=== PATIENT | female | born 1990 | race Caucasian/White ===

== ENCOUNTER 2016-07-17 20:33 | Emergency (ER) | payer OTHER ==
[2016-07-17 21:09] LABS: BILIRUBIN NEGATIVE (NEGATIVE); BLOOD NEGATIVE Ery/uL (NEGATIVE); CLARITY SLIGHTLY HAZY (CLEAR); COLOR YELLOW (YELLOW); GLUCOSE (U) NORMAL (NORMAL); KETONE (U) NEGATIVE (NEGATIVE); LEUKOCYTES NEGATIVE Leu/uL (NEGATIVE); NITRITE NEGATIVE (NEGATIVE); PROTEIN NEGATIVE (NEGATIVE); UROBILINOGEN 0.2 mg/dL (0.2-1.0); pH 5.5 (5.0-9.0)
[2016-07-17 21:32] LABS: BASOPHIL 0.7 % (0-2); EOSINOPHIL 5.9 % (0-5); HCT 40.1 % (37.0-47.0); HGB 13.4 g/dl (12.5-16.0); LYMPHOCYTE 30.5 % (15-48); MCH 31.5 pg (25.0-31.0); MCHC 33.4 g/dL (32.0-36.0); MCV 94.4 fL (78.0-100.0); MONOCYTE 7.4 % (0-12); MPV 9.9 fL (6.0-9.5); NEUTROPHIL 55.5 % (41-80); PLT 264 K/uL (150-400); RBC 4.25 M/uL (4.20-5.40); RDW 13.6 % (11.5-14.0); WBC 9.1 K/uL (4.0-10.5)
[2016-07-17 21:53] LABS: ALBUMIN 4.4 g/dL (3.5-5.0); BILIRUBIN - TOTAL 0.6 mg/dL (0.1-1.0); CREATININE 0.8 mg/dL (0.5-1.0); GLOBULIN (CALCULATION) 2.3 g/dL (2.2-4.2); POTASSIUM 3.7 mmol/L (3.5-5.1); TOTAL PROTEIN 6.7 g/dL (6.4-8.3)
== END 2016-07-17 23:15 | disposition home or self-care (01) ==
LOC: FER 20:33
PROVIDERS: Emergency Medicine Emergency Medical Services
DX: R10.11 Right upper quadrant pain (principal); R51 Headache; R50.9 Fever, unspecified; E86.9 Volume depletion, unspecified; Z87.891 Personal history of nicotine dependence; Z88.2 Allergy status to sulfonamides; Z98.890 Other specified postprocedural states
CPT/HCPCS: 36415; 74000; 80053; 81003; 85025; 87804; 87899; C9113; J1100; J1885; J2765

== ENCOUNTER 2016-07-25 21:15 | Emergency (ER) | payer OTHER | END 2016-07-26 00:23 | disposition left against medical advice (07) | LOC: FER 21:15 | DX: R10.9 Unspecified abdominal pain (principal); Z53.8 Procedure and treatment not carried out for other reasons ==